=== PATIENT | male | born 1930 | race Caucasian/White ===

== ENCOUNTER 2017-04-15 12:00 | Observation (INO) | payer OTHER ==
--- NOTE | 2017-04-15 12:17 | CPEKG ---
Heart Rate: 84 RR Interval: 714 P-R Interval: 276 QRSD Interval: 132 QT Interval: 400 QTC Interval: 473 P [place]: 61 QRS [place]: -71 T Wave [place]: 24 EKG Severity - ABNORMAL ECG - EKG Impression: SINUS RHYTHM EKG Impression: ATRIAL PREMATURE COMPLEX EKG Impression: FIRST DEGREE AV BLOCK EKG Impression: RIGHT BUNDLE BRANCH BLOCK Electronically Signed By: Chino Stapleton 15-Apr-2017 15:07:57
--- NOTE | 2017-04-15 12:18 | EDPHY ---
H & P Stated Complaint: neuro Time Seen by Provider: 04/15/17 12:17 Source: Patient Exam Limitations: No limitations - Personal History Current Tetanus Diphtheria and Acellular Pertussis (TDAP): Yes - Medical/Surgical History Hx Asthma: No Hx Chronic Respiratory Disease: No Hx Diabetes: No Hx Cardiac Disease: No Hx Renal Disease: No Hx Cirrhosis: No Hx Alcoholism: No Hx HIV/AIDS: No Hx Splenectomy or Spleen Trauma: No Other PMH: [place] - Social History Smoking Status: Never smoked Constitutional: Initial Vital Signs Temperature (C) 36.8 C 04/15/17 12:05 Heart Rate 101 H 04/15/17 12:05 Respiratory Rate 16 04/15/17 12:05 Blood Pressure 195/115 H 04/15/17 12:05 O2 Sat (%) 91 L 04/15/17 12:05 O2 Delivery Mode Room Air O2 (L/minute) 2 Allergies/Adverse Reactions: No Known Allergies Allergy (Unverified 03/25/11 11:33) Medical Decision Making ED Course/Re-evaluation: CHIEF COMPLAINT: "Blacking out" HISTORY OF PRESENT ILLNESS: The patient is an 87-year-old male who presents with episodes of "blacking out" that started last night. The patient states it is similar to "sticking your fingers in an electric outlet." For the past 24 hours he notes palpitations and irregular heart beat. He denies chest pain, dyspnea, or lower extremity swelling. The patient does not have a history of syncope. REVIEW OF SYSTEMS: A 10 point review of systems was performed and is negative with the exception of the elements mentioned in the history of present illness. PHYSICAL EXAM: HR, BP, O2 Sat, RR. Temp noted General Appearance: Alert, well hydrated, appropriate, and non-toxic appearing. Head: Atraumatic without scalp tenderness or obvious injury Eyes: Pupils equal, round, reactive to light and accommodation, EOMI, no trauma , no injection. Respiratory: No retractions, no distress, no wheezes, and no accessory muscle use. Lungs are clear to auscultation bilaterally. Cardiovascular: Regular rate and rhythm, slightly tachycardic. Gastrointestinal: Abdomen is soft, nontender, non-distended, no masses, no rebound, no guarding, no peritoneal signs. Musculoskeletal: Normal active ROM of all extremities, atraumatic. Neurological: Alert, appropriate, and interactive. The patient has normal DTRs and non-focal cranial nerves, motor, sensory, and cerebellar exam. Skin: No rashes, good turgor, no nodules on palpation. Past medical history: VPH, Hypercholesterolemia. Past surgical history: Denies. Family history: Noncontributory. Social history: . Lives with at home. DIAGNOSTICS/PROCEDURES/CRITICAL CARE TIME: Critical care time spent by me, Dr. Stapleton, exclusively with this patient was 30 minutes, exclusive of PA time, and exclusive of procedures. The organ system at risk was cardiac the patient was placed on cardiac monitoring. He was emergently transferred the patient to an counseling psychologist for emergent pacer placement due to complete heart block. DIFFERENTIAL DIAGNOSIS: MEDICAL DECISION MAKING: The patient presents with episodes of "blacking out" since last night. He admits to palpitations and irregular heart beat as well. His EKG shows complete heart block. The patient was placed on cardiac monitoring. He is hypertensive and tachycardic here. The patient denies symptoms of chest pain, dyspnea, or lower extremity swelling. 12:30 p.m.: I consulted Dr. Redmond, Cardiology, he recommends the patient go to the chemical lab supervisor to have an emergent pacer implanted. - Data Points Laboratory Results: Laboratory Results 04/15/17 12:15 04/15/17 12:15 04/15/17 04/15/17 12:15 12:15 WBC 6.31 10^3/uL 10^3/uL (3.80-9.50) RBC 4.34 10^6/uL L 10^6/uL (4.40-6.38) Hgb 14.6 g/dL g/dL (13.7-17.5) Hct 42.7 % % (40.0-51.0) MCV 98.4 fL fL (81.5-99.8) MCH 33.6 pg pg (27.9-34.1) MCHC 34.2 g/dL g/dL (32.4-36.7) RDW 13.1 % % (11.5-15.2) Plt Count 163 10^3/uL 10^3/uL (150-400) MPV 12.8 fL H fL (8.7-11.7) Neut % (Auto) 57.5 % % (39.3-74.2) Lymph % (Auto) 30.9 % % (15.0-45.0) [place] % (Auto) 9.0 % % (4.5-13.0) Eos % (Auto) 1.9 % % (0.6-7.6) Baso % (Auto) 0.5 % % (0.3-1.7) Nucleat RBC Rel Count 0.0 % % (0.0-0.2) Absolute Neuts (auto) 3.63 10^3/uL 10^3/uL (1.70-6.50) Absolute Lymphs (auto) 1.95 10^3/uL 10^3/uL (1.00-3.00) Absolute Monos (auto) 0.57 10^3/uL 10^3/uL (0.30-0.80) Absolute Eos (auto) 0.12 10^3/uL 10^3/uL (0.03-0.40) Absolute Basos (auto) 0.03 10^3/uL 10^3/uL (0.02-0.10) Absolute Nucleated RBC 0.00 10^3/uL 10^3/uL (0-0.01) Immature Gran % 0.2 % % (0.0-1.1) Immature Gran # 0.01 10^3/uL 10^3/uL (0.00-0.10) Sodium 141 mEq/L mEq/L (135-145) Potassium 4.1 mEq/L mEq/L (3.5-5.2) Chloride 104 mEq/L mEq/L (97-110) Carbon Dioxide 24 mEq/l mEq/l (22-31) Anion Gap 13 mEq/L mEq/L (8-16) BUN 21 mg/dL mg/dL (7-23) Creatinine 1.3 mg/dL mg/dL (0.7-1.3) Estimated GFR 52 Glucose 97 mg/dL mg/dL (70-100) Calcium 9.6 mg/dL mg/dL (8.5-10.4) Magnesium 2.0 mg/dL mg/dL (1.6-2.3) Troponin I < 0.012 ng/mL ng/mL (0.000-0.034) NT-Pro-B Natriuret Pep 257 pg/mL pg/mL (0-450) Departure - Departure Disposition: [facility] Inpatient Acute Clinical Impression: Complete heart block Condition: Fair Report Scribed for: Chino Stapleton Report Scribed by: Darya Tyler Date of Report: 04/15/17 Time of Report: 12:42
[2017-04-15 12:28] LABS: PLATELET COUNT 163 10^3/uL (150-400)
[2017-04-15] MEDS ORDERED: ONDANSETRON 4 MG/2 ML VIAL IVP PRN (12:59)
[2017-04-15] MEDS ORDERED: ONDANSETRON DISINTEGRATING 4 MG TAB PO PRN (12:59)
[2017-04-15] MEDS ORDERED: LIDOCAINE 1% 300 MG/30 ML SDV ONE (13:04)
[2017-04-15] MEDS ORDERED: MIDAZOLAM 2 MG/2 ML VIAL ONE (13:04)
[2017-04-15] MEDS ORDERED: BUPIVACAINE 0.5% 30 ML SDV ONE (13:04)
[2017-04-15] MEDS ORDERED: fentaNYL 100 MCG/2 ML INJ ONE (13:04)
[2017-04-15] MEDS ORDERED: CEFAZOLIN 1 GM/DEXTROSE/50 ML BAG IV ONE (13:05)
[2017-04-15] MEDS ORDERED: BACITRACIN 50,000 UNITS/10 ML SYR IRR ONE (13:15)
[2017-04-15] MEDS ORDERED: ceFAZolin 2 GM/DEXTROSE 100 ML IV ONE (13:15)
[2017-04-15] MEDS ORDERED: BACITRACIN IRRIGATION/NS 50,000 UNITS/1,000 ML BTL IRR ONE (13:15)
--- NOTE | 2017-04-15 13:41 | CPIP ---
[f rep st] INVASIVE CARDIAC PROCEDURE INDICATION: Presyncope and paroxysmal third-degree AV block. HISTORY OF PRESENT ILLNESS: I was asked to visit with this very pleasant gentleman by Dr. Chino velez. I visited with him in the emergency department. Both his and his son were present in the r oom at the time of this discussion. The patient states that for the past 8 weeks he has been having intermittent episodes of sudden onset of lightheadedness. He describes a sensation similar to when he gets out of the chair suddenly. He had several episodes yesterday. Another episode this morning resulted in presyncope. His enco uraged him to come to the emergency department. The patient denies any exertional chest pain. He does not have any chest pain at the time of this ex amination. He denies orthopnea or PND. REVIEW OF SYSTEMS: Besides the above noted findings review of systems was negative. PAST MEDICAL HISTORY: Positive for benign prostatic hypertrophy and hypothyroidism. SURGICAL HISTORY: Not relevant. MEDICATIONS: He does not remember all his home medications, but states that he does not take any car diac medications. He does remember that he takes aspirin, Synthroid, drugs for his prostate and ruperto ral multivitamins. FAMILY HISTORY: Not relevant. SOCIAL HISTORY: Not relevant to this examination. PHYSICAL EXAMINATION: VITAL SIGNS: His blood pressure is in the 130s over 80s. Heart rate is 70 to 90 beats per minute. There is intermittent complete AV block with up to 3 non-conducted P-waves. N NATALYA: There is no jugular venous distention. There is no thyromegaly. LUNGS: Clear to auscultation bilaterally. CARDIOVASCULAR: S1, S2 heard. Regular rate and rhythm. There is a soft systolic mur mur heard at the left upper sternal border. There are no gallops or rubs. ABDOMEN: There is no ten derness, guarding, or rigidity. EXTREMITIES: There is no clubbing, cyanosis, or edema. TELEMETRY: Telemetry monitoring was reviewed. This shows normal sinus rhythm with intermittent comp lete AV block. During the period of my examination, there were 8 to 10 episodes of complete heart bl ock with 2 to 3 sequential non-conducted P-waves. EKG: A 12-lead EKG shows normal sinus rhythm, right bundle branch block, left anterior fascicular bl ock and first-degree heart block. One of his EKGs shows 3 non-conducted P-waves. ECHOCARDIOGRAM: Echocardiogram is pending at the time of this dictation. ASSESSMENT AND PLAN: This is an otherwise healthy 87-year-old male with history of hypothyroidism an d benign prostatic hypertrophy. He does not have any known coronary artery disease or cardiac histor y. He is presenting with trifascicular block and intermittent presyncope over the last 8 weeks. Episode s got worse yesterday when he took a cold medication. This is a Class 1 indication for permanent pacing. The procedure and its risks were reviewed with zuleyka hyman and his family. His RN was present in the room at the time of this dictation. I specifically revi ewed risks of pneumothorax, cardiac perforation, deep venous thrombosis, superior vena cava syndrome, left upper extremity edema, lead dislodgement, infection, bleeding, etc. We will proceed with permanent pacemaker implantation this afternoon. /[id number]/MODL
--- NOTE | 2017-04-15 13:56 | PDPROPOC ---
Sedation Plan of Care Sedation Plan of Care: vital signs stable, mental status noted, patient educated of risks, benefits, alternatives, patient can tolerate sedation ASA Classification: ASA 2 Planned drugs: fentanyl, midazolam Mallampati Score: Class 1 Mallampati Reference Image: Patient passed 3-3-2 rule?: Yes
--- NOTE | 2017-04-15 15:18 | ECHO ---
[email or web address] [address] Main: [phone] Fax: Transthoracic Echocardiogram Name: IVAN WOODS MR#: [id number] Study Date: 04/15/2017 Study Time: 01:11 PM Date of : 1930 Age: 87 year(s) Height: 172.7 cm (68 in.) Weight: 70.31 kg (155 lb.) BSA: 1.83 m2 Gender: Male Examination: Echo Indication: Third degree heart block Image Quality: Adequate Contrast: Requested by: Chino Stapleton BP: 141 mmHg/74 mmHg Heart Rate: Rhythm: Indication: Third degree heart block Procedure Staff Education Administrator: Susanna Torres Reading Physician: Akbar Redmond Requesting Provider: Conclusions: Normal systolic LV function with paradoxic septal motion suggestive of bundle branch block, paced cardiac rhythm, or prior cardiac surgery. . EF is 56 %. Mild MAC. No aortic valve stenosis is present. Measurements: Chambers Valvular Assessment AV/MV Valvular Assessment TV/PV Normal Normal Normal Name Value Range Name Value Range Name Value Range IVSd (2D): 1.5 cm (0.6 cm-1.1 AV Vmax: 1.20 m/s (1 m/s-1.7 TR Vmax: 2.06 mm/s ( - ) cm) m/s) TR PGmax: 17 mmHg ( - ) LVDd (2D): 3.2 cm (4.2 cm-5.9 AV maxP mmHg ( - ) syst. PAP: 27 mmHg ( - ) cm) AV meanP mmHg ( - ) PV Vmax: 0.90 m/s (0.6 m/s-0.9 LVDs (2D): 2.3 cm (2.1 cm-4 LVOT Vmax: 0.90 m/s (0.7 m/s-1.1 m/s) cm) m/s) PV PGmax: 3 mmHg ( - ) LVPWd (2D): 0.9 cm (0.6 cm-1 MV E Vmax: 0.70 m/s ( - ) cm) MV A Vmax: 0.76 m/s ( - ) LVEF (2D): 56 (>=54 %) MV E/A: 0.92 ( - ) MV maxP mmHg ( - ) MV meanP mmHg ( - ) Continued Measurements: Chambers Valvular Assessment AV/MV Valvular Assessment TV/PV Name Value Name Value Name Value TAPSE: 1.7 cm MV DecTime: 366 m/s CVP (est.): 10 mmHg MV E/E' Septal: 12.80 MV E/E' Lateral: 13.40 Patient: IVAN WOODS Study Date: 04/15/2017 Page 1 of 2 01:11 PM MV VTI: 26.60 cm Findings: Left Ventricle: Normal size left ventricle. Asymmetrical basal-septal LV hypertrophy. Normal systolic LV function with paradoxic septal motion suggestive of bundle branch block, paced cardiac rhythm, or prior cardiac surgery. . EF is 56 %. No regional wall motion abnormality. Right Ventricle: Normal size right ventricle. Normal RV function. Left Atrium: The left atrium is normal in size. Right Atrium: The right atrium is normal in size. Mitral Valve: The mitral valve is normal in appearance and function. Trivial mitral valve regurgitation. No mitral stenosis is present. Mild MAC. Aortic Valve: There is no aortic valve regurgitation. No aortic valve stenosis is present. Poorly visualized; probably trileaflet, mild sclerosis. Tricuspid Valve: The tricuspid valve is normal in appearance and function. Trivial to mild tricuspid valve regurgitation. Right Ventricular systolic pressure is measured at 27 mmHg. Pulmonic Valve: Pulmonary valve not well visualized. IVC: The IVC is not visualized. Pericardium: No pericardial effusion. There is pericardial fat. (No Signature Object) Patient: IVAN WOODS Study Date: 04/15/2017 Page 2 of 2 01:11 PM [id number]
[2017-04-15] MEDS: ACETAMINOPHEN 325 MG TAB PO PRN ×2 (16:12→21:15)
--- NOTE | 2017-04-15 16:21 | CPEKG ---
Heart Rate: 64 RR Interval: 938 P-R Interval: 288 QRSD Interval: 134 QT Interval: 436 QTC Interval: 450 P [place]: 53 QRS [place]: -56 T Wave [place]: 10 EKG Severity - ABNORMAL ECG - EKG Impression: SINUS RHYTHM EKG Impression: FIRST DEGREE AV BLOCK EKG Impression: RIGHT BUNDLE BRANCH BLOCK Electronically Signed By: Akbar Redmond 16-Apr-2017 04:30:36
--- NOTE | 2017-04-15 17:57 | GHP ---
[f rep st] HISTORY AND PHYSICAL DATE OF ADMISSION: 04/15/2017 CHIEF COMPLAINT: Dizzy episodes. HISTORY OF PRESENT ILLNESS: An 87-year-old male, who reports having several episodes of black spots in his vision or near losses of consciousness in the 24 hours preceding his presentation. The patien milagro reports he had episodes similar to this less frequently in the months preceding [facility], one in particular approximately 6 weeks ago that was more prolong ed for several seconds. Reports no chest pain at the time of these episodes, a sensation of maybe a skipped beat, the longest of which sensation that he were to pass out but then regains consciousness without falling or hitting anything. The patient denies any associated chest pain, any sensed palpit ations. Denies any abdominal discomfort, nausea, vomiting, diaphoresis. Denies any active dysuria, hematuria. Does have urinary frequency related to his prostate. Denies any lower extremity edema, s ubjective fevers or chills, or recent sick contacts. PAST MEDICAL HISTORY: 1. BPH. 2. Hypothyroidism. 3. Gastroesophageal reflux disease. SOCIAL HISTORY: Negative for tobacco, alcohol, or illicit drugs. FAMILY HISTORY: Positive for heart disease. ADVANCED DIRECTIVES: Patient is full COR, full tubes. His would be his medical decision maker. REVIEW OF SYSTEMS: A 10-point review of systems is negative with the exception of that reported in t he HPI. PHYSICAL EXAMINATION: VITAL SIGNS: Blood pressure is 166/80, heart rate being paced in the 60s, res piratory rate 16, 98% on 2 L, 36.6. GENERAL: This is a healthy-appearing elderly male, sitting up i n bed. Post pacemaker placement. HEENT: Notable for moist mucous membranes. Eye exam is negative for any icterus. CARDIAC: Patient is regular rate and rhythm. A systolic murmur is appreciated. P ULMONARY: Patient is clear to auscultation bilaterally. GASTROINTESTINAL: Positive bowel sounds. Abdomen is soft and nontender in all 4 quadrants. MUSCULOSKELETAL: Negative for any lower extremity edema. SKIN: Negative for any rashes. NEUROLOGIC: He is alert and oriented x3. PSYCHIATRIC: He is pleasant and cooperative on interview and examination. DATA: Telemetry, which I personally reviewed and interpreted, shows sinus rhythm with intermittent c omplete AV block. Multiple episodes of nonconducted P waves. Chest x-ray, which I personally review ed and interpreted, post procedure shows no infiltrates or edema. ASSESSMENT AND PLAN: This is an 87-year-old male presenting with presyncopal episodes. 1. Complete heart block. Patient presented with symptoms consistent with heart block and EKG tracin gs consistent with intermittent complete heart block. The patient was taken emergently for pacemaker placement. Post procedure, patient is without complaint, on telemetry with intermittently paced keith ts. Continue to monitor this evening. Recheck chest x-ray in the morning. 2. Hypothyroidism. Order a TSH for the morning. We will continue his 50 mcg of levothyroxine. 3. Benign prostatic hypertrophy. We will continue patient's tamsulosin. 4. Prophylaxis with sequential compression devices. 5. Diet: Cardiac. 6. Disposition: I expect in less than 2 midnights if the patient remains stable on gambling monitor overnight. Discussed the case with Cardiology. Patient's procedure was uncomplicated. /[id number]/MODL
[2017-04-15] MEDS ORDERED: ASPIRIN EC 81 MG TAB PO SCH (21:00)
[2017-04-15] MEDS ORDERED: LEVOTHYROXINE 50 MCG TAB PO SCH (21:00)
[2017-04-15] MEDS ORDERED: TAMSULOSIN HCL 0.4 MG CAP PO SCH (21:00)
[2017-04-16 04:19] LABS: PLATELET COUNT 137 10^3/uL (150-400)
[2017-04-16 05:11] VITALS: TEMP 97.9
[2017-04-16] MEDS ORDERED: ASCORBIC ACID 500 MG TAB PO SCH (09:00)
[2017-04-16] MEDS ORDERED: OMEGA-3 FATTY ACIDS 1,000 MG CAP PO SCH (09:00)
[2017-04-16] MEDS ORDERED: VITAMIN B COMPLEX 1 EA CAP/TAB PO SCH (09:00)
[2017-04-16] MEDS ORDERED: PANTOPRAZOLE SODIUM 40 MG TAB PO SCH (09:00)
[2017-04-16] MEDS ORDERED: Herbals/Supplements -Info Only PO SCH (09:00)
--- NOTE | 2017-04-16 10:24 | PDCARPN ---
Cardiology Progress Note Chief Complaint: Patient reports mild soreness at pacemaker insertion site. Assessment/Plan: Assessment: 87-year-old male with significant history of BPH, hypothyroidism, GERD. No significant cardiac history. Admitted yesterday for episodes of spontaneous "blacking out ", that has been happening over the last 3 weeks. Electrocardiogram done in ED showing intermittent complete heart block. Taken to cardiac catheterization lab by Dr. Redmond yesterday where a [employer] dual chamber ppm implanted with atrial and ventricular leads. No complications. Echocardiogram done in the emergency department prior to catheterization showing normal LV systolic function with paroxysmal septal motion suggesting of bundle branch block EF estimated at 56% with no regional wall motion abnormalities. Trivial MR, trivial to mild TR, RVSP at 27 mm Hg. Today, patient reports no further episodes of blacking out. Continues cardiac monitoring showing sinus rhythm, occasional paced beat , no malignant arrhythmias or pauses noted. Patient denies of any chest pressure or pain. Does reports mild tenderness at incisional site. Dressing change done showing incision intact with rosmery, no redness, swelling, drainage, ecchymosis, or hematoma. Patient's vital signs been stable. Morning device check done by [employer] rep showing function within normal limits. Preliminary chest x-ray reviewed by myself showing no delayed pneumothorax. Plan: 1. Complete heart block: Patient reporting "blackout "spells , noted to have episodes of complete heart block Emergency Department. ppm implantation done yesterday. No malignant arrhythmias or pauses noted overnight. Device check done today showing functioning within normal limits. Waiting for final read by Radiology , AM chest x-ray by my interpretation shows no delayed pneumothorax. No acute cardiopulmonary process. I have set the patient up for a follow-up visit in our office for a device and wound check. He will need to call his PCP in get established with [facility] for future follow-up, per his insurance instruction. Post pacemaker implantation discharge instructions went over with the patient, including for monitoring for signs of infection, activity restrictions, bathing precautions. 2. Hypothyroidism: Patient has been continue on home levothyroxine. 3. BPH: Patient has been continued on home tamsulosin Patient be discharged home today. Post ppm instructions went over with patient. 04/16/17 10:21 Subjective: Patient denies of any chest pressure or pain. Reports no further episodes of lightheadedness, near-syncope or syncopal events. Denies of any shortness of breath. Up in walking the unit without difficulties. Reviewed/Discussed With: hospitalist (Dr. Colon) Objective: Vital Signs (8 Hrs) Temp Pulse Resp BP Pulse Ox 04/16/17 08:41 36.6 C 78 18 131/82 H 93 04/16/17 04:00 36.6 C 66 16 118/67 94 Intake/Output (24 Hrs) 04/15/17 04/16/17 04/17/17 05:59 05:59 05:59 Intake Total 350 Output Total 950 Balance -600 Intake: Oral (ml) 200 IV Intake (ml) 150 Output: Urine (ml) 950 Urinal 950 Other: Weight 70.307 kg Intake Quantity Yes Sufficient Number of Voids Urinal 1 Result Diagrams: 04/16/17 04:08 04/16/17 04:08 - Physical Exam Constitutional: WDWN, healthy appearing Ears, Nose, Mouth, Throat: moist mucous membranes Cardiovascular: regular rate and rhythm, no murmurs, no rubs, no gallops, pulses symmetric bilat, No jugular vein distention Peripheral Pulses: 1+: dorsalis-pedis (R), dorsalis-pedis (L), 2+: carotid (R), carotid (L) Respiratory: clear to auscultate bilat, no crackles, no wheezes, No reduced air movement Gastrointestinal: normoactive bowel sounds Skin: warm, no edema, other (Anterior chest, pacemaker pocket incision intact with rosmery. No redness, swelling, ecchymosis, or hematoma.) Neurologic: AAOx3 Psychiatric: cooperative, interactive, following commands ICD10 Worksheet Patient Problems: Problems Problem Status Onset Complete heart block Acute
[2017-04-16 12:39] VITALS: BP 118/70; PULSE 74; RESP 16; O2SAT 90
--- NOTE | 2017-04-16 12:59 | EPPROC ---
Electrophysiology Procedure Note: PROCEDURE PERFORMED: 1. Implantation of an A/V Pacemaker 2. Subclavian vein angiography 3. Fluoroscopy INDICATION: Paroxysmal complete AV block with presyncope PROCEDURE NOTE: Patient presented to the cardiac catheterization laboratory in a fasting, post absorptive state . No sedation was given due to patients unstable rhythm. Up to 12 seconds of complete AV block was noted during the procedure. The left infraclavicular area was prepped and draped in the usual sterile fashion. Lidocaine plus bupivacaine was used for local anesthesia. Left subclavian venography was performed by injection of iodinated contrast into the left antecubital vein. This was done to assure patency of the vein and also to assess for any anatomical aberrations. Using a combination of blunt and sharp dissection and electrocautery, the dissection was carried down to the prepectoral fascia. A pocket was made in this anatomical plane. All bleeding was controlled with electrocautery. The pocket was packed with gauze soaked in antibiotic solution. Fluoroscopy was utilized during the entire procedure for venous access and placement of the leads. Using a direct stick technique the left extrathoracic axillary vein was accessed with 2 sticks using the modified Seldinger technique. Placement of the guidewires into the venous system was confirmed by low-pressure blood return and also by visualizing the guidewires advancing into the inferior vena cava. A purse string suture was applied around the guidewires. Two #7 [place] sheaths were advanced under fluoroscopic guidance over the guidewire. An active fixation ventricular lead was advanced into the right ventricular apex and screwed in place. An active fixation atrial lead was advanced into the right atrial appendage and screwed in place. The peel away sheaths were removed. Pacing thresholds, sensing parameters and lead impedances were measured. There was no diaphragmatic stimulation at maximum output. The leads were sutured to the prepectoral fascia with 3 nonabsorbable sutures each. The pocket was again inspected for any bleeding. The leads were attached to the pacemaker securely. The pacemaker was inserted into the pocket and secured in place with a nonabsorbable suture. Fluoroscopy was performed in BE and BARBAD[place] planes to verify right-sided placement of the leads. Also fluoroscopy of the pacemaker pocket was performed. The pacemaker pocket was closed in 3 layers with absorbable monocryl sutures and rosmery. Appropriate dressing was applied. The patient left the cardiac catheterization laboratory in stable condition. Serial Numbers: 1. Device: SJM Assurity MRI 2272 [id number] 2. Atrial Lead: SJM Tendril 8TC 46 cm SN [id number] 3. Ventricular Lead: SJM Tendril 8TC 52 cm SN [id number] Stimulation Thresholds & Impedance Measurements: 1. Atrial Lead P 6.1 mV 1.2 V 0.5 ms 800 ohm 2. Ventricular Lead R 9.2 mV 0.4 V 0.5 ms 936 ohm Silvio Pacing Parameters 1. Pacing mode: DDDR 2. Lower rate: 60ppm 3. Upper tracking rate: 130 ppm 4. Upper sensor rate: 130 ppm Patient Problems: Problems Problem Status Onset Complete heart block Acute
--- NOTE | 2017-04-16 18:53 | GDS ---
[f rep st] DISCHARGE SUMMARY DISCHARGE DIAGNOSES: Include: 1. Presyncope secondary to complete heart block. 2. Complete heart block, status post pacemaker placement. HISTORY OF PRESENT ILLNESS: An 87-year-old male with limited past medical history, who presents with complaints of intermittent episodes of nearly losing consciousness in the 6 weeks prior to presentat ion. For details of patient's initial presentation, please see the history and physical dated 2017. CONSULTATIVE SERVICES: Include Cardiology. PROCEDURES: On 04/15/2017, patient taken emergently to the cardiac cath lab radiological technologist for pacemaker placement. HOSPITAL COURSE BY ISSUES: 1. Complete heart block. Patient was noted to be in complete heart block on electrocardiographic tr acing in the emergency department and was taken emergently for implanted permanent pacemaker. The pa pam had no complications during this procedure, was monitored overnight on telemetry and remained i ntermittently paced throughout the evening. Repeat chest imaging confirms proper lead placement with out complication or pneumothorax. The patient is being discharged without additional cardiac medicat ions, and outpatient post device followup with [facility]. 2. Presyncope. Clearly related to the patient's underlying conduction abnormality. The patient was without vital sign abnormalities or dizziness post pacemaker placement. Again, he will follow with [facility] for ongoing monitoring of his cardiac dysrhythmia and new device. MEDICATIONS AT THE TIME OF TRANSFER: Please reference med rec printed on 04/16/2017. PENDING STUDIES: At the time of this dictation, are none. FOLLOWUP APPOINTMENTS: Include with [facility] next week for his first post device followup appoi ntment. I spent greater than 30 minutes in the planning and coordination of this discharge. /[id number]/MODL
--- NOTE | 2017-04-17 12:48 | ASDISCHSUM ---
Discharge Information Plan Status:Home with No Needs Medically Cleared to Leave:04/15/2017 Discharge Date:04/16/2017 01:36 PM CM D/C Disposition: ADT D/C Disposition:Home, Routine, Self-Care Projected Discharge Date:04/16/2017 12:00 AM Transportation at D/C: Discharge Delay Reason: Follow-Up Date:04/16/2017 12:00 AM Discharge Slot: Final Diagnosis: Placement Information Patient Contact Information Contact Name:JENELLE Relationship: Address:[address] Work Phone: City:[place] Phone: State/Zip Code:[place] [address] Email: Financial Information Financial Class:Medicare Advantage Plans Primary Plan Desc:[employer] OUTPAT Primary Plan Number:[id number] Secondary Plan Desc: Secondary Plan Number: Assessment Information Intervention Information
== END 2017-04-16 13:36 | disposition home or self-care (01) ==
LOC: F2W 15:25
PROVIDERS: ADMIT Hospitalist; ATTEND Hospitalist
PROC: 02HK3JZ Insertion of Pacemaker Lead into Right Ventricle, Percutaneous Approach (ICD-10-PCS; principal; 2017-04-15)
PROC: 0JH606Z Insertion of Pacemaker, Dual Chamber into Chest Subcutaneous Tissue and Fascia, Open Approach (ICD-10-PCS; principal; 2017-04-15)
PROC: 02H63JZ Insertion of Pacemaker Lead into Right Atrium, Percutaneous Approach (ICD-10-PCS; principal; 2017-04-15)
DX: I44.2 Atrioventricular block, complete (principal); N40.0 Benign prostatic hyperplasia without lower urinary tract symptoms; E03.9 Hypothyroidism, unspecified; K21.9 Gastro-esophageal reflux disease without esophagitis
CPT/HCPCS: 33208; 71045; 71046; 93005; 93306; 97161; 97165; C1785; C1898; G0378; G8978; G8979; G8980; G8987; G8988; G8989; J0690; J2250; J3010